=== PATIENT | female | born 1955 | race Caucasian/White ===

== ENCOUNTER → 2024-01-08 12:16 | Outpatient (REF) | payer OTHER, SELFPAY | LOC: RAD 12:16 | PROVIDERS: ATTENDING PHYSICIAN Nurse Practitioner Family | DX: Z96.652 Presence of left artificial knee joint (principal) | CPT/HCPCS: 73564 ==

== ENCOUNTER → 2024-08-14 13:26 | Outpatient (REF) | payer OTHER, SELFPAY | LOC: HWWDC 13:26 | PROVIDERS: ATTENDING PHYSICIAN Family Medicine | DX: Z12.31 Encounter for screening mammogram for malignant neoplasm of breast (principal) | CPT/HCPCS: 77063; 77067 ==

== ENCOUNTER → 2024-08-14 13:30 | Outpatient (REF) | payer SELFPAY | LOC: HWRAD 13:30 | PROVIDERS: ATTENDING PHYSICIAN Family Medicine | DX: E78.00 Pure hypercholesterolemia, unspecified (principal) | CPT/HCPCS: 75571 ==

== ENCOUNTER 2024-11-13 14:11 | Emergency (ER) | payer OTHER, SELFPAY ==
[2024-11-13 14:11] VITALS: BMI 28.9
[2024-11-13 14:21] VITALS: BP 133/80
[2024-11-13 14:49] LABS: % Basophils 0.8 % (0-2); % Eosinophils 1.4 % (0-6); % Immature Granulocytes 0.3 % (0-0.5); % Lymphocytes 25.3 % (20.5-51.1); % Monocytes 9.5 % (1.7-9.3); % Neutrophils 62.7 % (42.2-75.2); Absolute Basophils 0.1 10^3/uL (0-0.2); Absolute Eosinophils 0.1 10^3/uL (0-0.7); Absolute Lymphocytes 1.7 10^3/uL (1.2-3.4); Absolute Monocytes 0.6 10^3/uL (0.1-0.6); Absolute Neutrophils 4.2 10^3/uL (1.4-6.5); Hematocrit 43.5 % (37.0-47.0); Hemoglobin 14.7 g/dL (12.0-16.0); Mean Corp Hgb Conc. 33.8 g/dL (33.0-37.0); Mean Corpuscular Hgb 29.6 pg (27.0-31.0); Mean Corpuscular Volume 87.5 fL (81.0-99.0); Mean Platelet Volume 10.1 fL (7.4-10.4); Nucleated Red Blood Cells % 0 %; Platelet Count 253 10^3/uL (130-400); Red Blood Cell Count 4.97 10^6/uL (4.20-5.40); Red Cell Dist. Width 14.4 % (11.5-14.5); White Blood Cell Count 6.7 10^3/uL (4.8-10.8)
[2024-11-13 15:07] LABS: ALT (SGPT) 21 U/L (0-35); AST (SGOT) 23 U/L (14-36); Albumin 4.2 g/dl (3.5-5.0); Alkaline Phosphatase 87 U/L (38-126); Blood Urea Nitrogen 17 mg/dl (7-17); Calcium 9.6 mg/dl (8.4-10.2); Carbon Dioxide 27 mmol/L (22-30); Chloride 108 mmol/L (98-107); Glucose 124 mg/dl (70-99); Lipase 270 U/L (23-300); Potassium 4.3 mmol/L (3.5-5.1); Sodium 141 mmol/L (135-145); Total Bilirubin 0.5 mg/dl (0.2-1.3); Total Protein 6.7 g/dl (6.3-8.2); eGFR > 60.00
[2024-11-13 16:00] VITALS: BP 122/78
--- NOTE | 2024-11-13 16:32 | ED.GENMED ---
History of Present Illness
General
Chief Complaint: Abdominal Pain
Time Seen by Provider: 11/13/24 15:22
History of Present Illness
History of Present Illness:
Note:
CHIEF COMPLAINT(S)
Abdominal pain.
HISTORY OF PRESENT ILLNESS
The patient is a 69-year-old female who presents with a history of abdominal pain that has been persistent for one week. She reports a history of diverticulitis approximately 20 years ago. The current episode began in the upper abdomen, causing
noticeable bloating to the extent that she described, 'I looked like I was six months [].' Over time, the pain has localized to the lower abdomen, specifically on the left side. The patient notes exacerbation of pain when sitting and
experiences concentration of tenderness in this position. She denies having any fever, chills, or most sweating, but mentioned feeling cold despite hot environmental conditions. Additionally, there is a noticeable bloating sensation she associates
with possible gas and stool obstruction. Relating to her urinary symptoms, there is no mention of increased frequency or urgency. The pain did not worsen significantly during transit, such as when going over bumps in a car.
CHRONIC MEDICAL CONDITIONS SIGNIFICANTLY AFFECTING CARE
History of diverticulitis.
PHYSICAL EXAM
GEN: Well appearing, NAD, WDWN
HEENT: Oral mucosa moist, no scleral icterus
Cardiac: Regular rate
Lung: No respiratory distress, no tachypnea
Abdomen: Soft, mild epigastric and left lower quadrant tenderness, no rigidity
MSK: No gross deformity or injuries
Skin: Good color, no pallor or jaundice, no rashes
Neuro: AO x3, moves all extremities freely
Psych: Calm, cooperative
PLAN
Order a computed tomography (CT) scan to evaluate for complications of diverticulitis, such as microperforation or abscess formation. If findings warrant, hospitalization for intravenous antibiotics may be required. If the imaging is unremarkable,
treatment with antibiotics can be pursued and the patient can likely be managed as an outpatient.
DIFFERENTIAL DIAGNOSIS
The Differential Diagnosis includes, in no particular order and is not limited to:
1. Diverticulitis
2. Colonic perforation
3. Abdominal abscess
4. Small bowel obstruction
5. Gastroenteritis
6. Pancreatitis
7. Gallbladder disease
8. Peptic ulcer disease
9. Colitis
10. Appendicitis
Disposition:
SUMMARY OF ENCOUNTER
The patient, a 69-year-old female, presented with persistent abdominal pain localized to the lower left abdomen over the past week, with historical mention of diverticulitis. The pain began in the upper abdomen accompanied by bloating. She reported
no fever, chills, or increased sweating but felt cold. Upon examination, significant tenderness was noted in the upper abdomen without rigidity or rebound tenderness. CT was obtained to evaluate for these findings however the imaging was limited
secondary to beam hardening artifact from hip hardware given her clinical presentation being compatible with acute diverticulitis we will treat accordingly
ASSESSMENT
The patients symptoms are consistent with diverticulitis.
PLAN
To manage the patients condition, a computed tomography (CT) scan was ordered to evaluate for complications related to diverticulitis, such as microperforation or abscess formation. If imaging results indicate more severe complications,
hospitalization for intravenous antibiotics might be necessary. If the imaging does not show significant issues, treatment with antibiotics is the recommended approach for outpatient management.
MEDICAL DECISION MAKING
The patient presented with acute abdominal pain and a history of diverticulitis, requiring evaluation to rule out serious complications. The complexity of potential diagnoses necessitated a CT scan for better diagnostic clarity. Consideration was
given to the need for hospitalization depending on CT findings. The plan included managing the patients condition with antibiotics and possible outpatient follow-up, unless imaging indicated complexities requiring inpatient care.
Past History
Past History
ED Past Medical History: Other (OA)
ED Past Surgical History: Orthopedic
Social History
Tobacco: Non-smoker
Phy Exam
Physical Exam
Physical Exam:
.
Course
Orders/Labs/Results
Orders:
Orders
11/13/24 14:21
IV Insert/Care/Rem.- Treatment PRN
11/13/24 14:32
Complete Blood Count/With Diff Urgent
Comprehensive Metabolic Panel Urgent
Lipase Urgent
11/13/24 16:31
CT Abd/Pel (IV only)-DH only Urgent
Comment:
Reason For Exam: LLQ pain
11/13/24 19:33
Amoxicillin 875 mg/Clav 125 mg [Augmentin 875 mg/125 mg] 1 tablet PO NOW STA
Abnormal Lab Results
11/13/24
14:32
Monocytes % 9.5 H %
(1.7-9.3)
Chloride 108 H mmol/L
(98-107)
Glucose 124 H mg/dl
(70-99)
11/13/24 14:32
11/13/24 14:32
Vital Signs
Initial and Last Documented VS:
Initial Vital Signs
Temp Pulse Resp BP Pulse Ox
98.2 F 62 18 133/80 97
11/13/24 14:21 11/13/24 14:21 11/13/24 14:21 11/13/24 14:21 11/13/24 14:21
Last Documented Vital Signs
Temp Pulse Resp BP Pulse Ox
98.2 F 75 16 132/76 99
11/13/24 14:21 11/13/24 19:58 11/13/24 19:58 11/13/24 19:58 11/13/24 19:58
*Pulse Oximetry
Patient hypoxic: no
Comment: 98%
*Critical Care Note
Total Time (30-74mins, 75-104mins- exclusive of procedures): Not Applicable
ED Attending Note
-
Portions of this chart may have been created with voice recognition software.� Occasional wrong word or��sound alike� substitutions may have occurred due to the inherent limitations of voice recognition software.
Discharge Plan
Departure
Patient Disposition: Home (Routine Discharge)
Date of Disposition: 11/13/24
Time of Disposition: 19:34
Patient with high blood pressure during this ER visit?: No
Discharge Problem:
Diverticulitis
Instructions: Clear Liquid Diet, Diverticulitis (DC)
Prescriptions:
New
amoxicillin-pot clavulanate 875-125 mg tablet
1 tab PO BID Qty: 19 0RF
Referrals:
Adali Mcclain MD [Family Provider, Family Practice]
Interventions
Interventions:
*Risk Screen - Suicide Last Done: 11/13/24 14:21
*General Assessment Last Done: 11/13/24 15:36
*Neglect/Abuse Screening Last Done: 11/13/24 14:21
*ED- Fall Risk Assessment Last Done: 11/13/24 15:36
*ED COVID-19 Vaccine History Last Done: 11/13/24 19:58
*Nursing Disposition Last Done: 11/13/24 19:58
VZ-Ymmsoc-Wwanusjxgw Assessment Last Done: 11/13/24 15:36
Discharge Date and Time
Discharge Date/Time: 11/13/24 19:59
Print Language: GRENADIAN
[2024-11-13 18:00] VITALS: BP 119/71
[2024-11-13] MEDS: AUGMENTIN 875 MG/125 MG 1 TABLET PO (19:56)
[2024-11-13 19:58] VITALS: BP 132/76
== END 2024-11-13 19:59 | disposition home or self-care (01) ==
LOC: EMR 14:11
PROVIDERS: Emergency Medicine; EMERGENCY PHYSICIAN Student in an Organized Health Care Education/Training Program; FAMILY PHYSICIAN Family Medicine
DX: K57.32 Diverticulitis of large intestine without perforation or abscess without bleeding (principal); Z96.642 Presence of left artificial hip joint
CPT/HCPCS: 99284; 74177; 80053; 83690; 85025; Q9967